=== PATIENT | female | born 1955 | race Caucasian/White ===

== ENCOUNTER 2016-07-26 10:59 | Emergency (ER) | payer MEDICARE ==
[~2016-07-26] VITALS: Ht 162.6 cm; Wt 49.9 kg
[~2016-07-26 10:59] MED LIST: COLACE100 MG PO; EFFEXOR75 MG PO; POLYETHYLENE GL17 GM PO; TAMSULOSIN HCL0.4 MG PO; TYLENOL EXTRA500 MG PO; TYLENOL PM EX-1 EACH PO; ZOFRAN4 MG PO
[2016-07-26 12:12] LABS: HEMATOCRIT 40.6 % (36.0-46.0); MCH 28.8 PG (29.0-34.0); MCHC 33.3 G/DL (30.0-36.0); MCV 86.8 FL (83-99); MEAN PLAT.VOLUME 10.4 uM^3 (9.5-12.4); PLATELET COUNT 217 K/uL (156-360); RBC DIS.WIDTH-CV 12.5 % (11.8-14.6); RBC DIS.WIDTH-SD 39.8 % (39-53); RED BLOOD COUNT 4.68 M/uL (3.80-5.20); WHITE BLOOD COUNT 6.7 K/uL (4.1-10.2)
[2016-07-26 12:27] LABS: CHLORIDE 105 mEq/L (99-109); POTASSIUM 3.2 mEq/L (3.7-5.4); SODIUM 142 mEq/L (136-147)
[2016-07-26 12:29] LABS: GLUCOSE 98 mg/dL (70-99)
[2016-07-26 12:31] LABS: ANION GAP 13 MEQ/L (2-14); TOTAL BILIRUBIN 0.5 mg/dL (0.0-1.0)
[2016-07-26 12:33] LABS: ALKALINE PHOSPHATASE 75 IU/L (3-129); GFR ESTIMATE (CALCULATED) > 59 mL/min/
[2016-07-26 12:34] LABS: UREA NITROGEN (BUN) 20 mg/dL (9-23)
[2016-07-26 12:36] LABS: LIPASE 32 U/L (1.0-51.0)
[2016-07-26 13:05] LABS: ADD MIUA? NO; BILIRUBIN NEGATIVE; BLOOD NEGATIVE; COLOR YELLOW ((YELLOW)); GLUCOSE (STRIP) NEGATIVE; KETONES 20; LEUKOCYTES NEGATIVE; NITRITE NEGATIVE; PROTEIN (STRIP) 30; UCUL ADDED? NO; UROBILINOGEN 0.2 MG/DL (0.2-1.0)
[2016-07-26] MEDS ORDERED: MECLIZINE HCL25 MG PO (16:31)
[2016-07-26 17:05] VITALS: BP 141/64
== END 2016-07-26 17:06 | disposition home or self-care (01) ==
LOC: EME 10:59
DX: R42 Dizziness and giddiness (principal); R11.2 Nausea with vomiting, unspecified; R19.7 Diarrhea, unspecified
CPT/HCPCS: 80053; 81003; 83690; 85027; 99281; 99284

== ENCOUNTER 2017-08-16 07:00 | Emergency (ER) | payer MEDICARE ==
[~2017-08-16] VITALS: Ht 162.6 cm; Wt 50.9 kg
[~2017-08-16 07:00] MED LIST changes: +MECLIZINE HCL25 MG PO
[2017-08-16 07:53] LABS: BASOPHIL (%) 0.3 % (0-1); EOSINOPHIL (%) 0.7 % (0-5); EOSINOPHIL COUNT 0.1 K/uL (0-0.3); HEMATOCRIT 42.5 % (36.0-46.0); HEMOGLOBIN 14.6 G/DL (11.9-15.5); IMMATURE GRANULOCYTE (%) 0.3 % (0.0-0.7); LYMPHOCYTE (%) 30.3 % (15-42); LYMPHOCYTE COUNT 2.2 K/uL (1.0-2.8); MCH 29.4 PG (29.0-34.0); MCHC 34.4 G/DL (30.0-36.0); MCV 85.5 FL (83-99); MONOCYTE (%) 6.3 % (3-12); MONOCYTE COUNT 0.5 K/uL (0-0.8); NEUTROPHIL (%) 62.1 % (45-76); NEUTROPHIL COUNT 4.4 K/uL (1.8-6.4); PLATELET COUNT 219 K/uL (156-360); RBC DIS.WIDTH-SD 39.8 % (39-53); RED BLOOD COUNT 4.97 M/uL (3.80-5.20); WHITE BLOOD COUNT 7.1 K/uL (4.1-10.2)
[2017-08-16 08:18] LABS: ALBUMIN 4.7 G/DL (3.2-4.8); ALKALINE PHOSPHATASE 79 IU/L (3-129); ALT (GPT) 19 IU/L (3-49); AST (GOT) 24 IU/L (2-34); CHLORIDE 102 MEQ/L (99-109); CREATININE 0.7 MG/DL (0.6-1.3); GFR ESTIMATE (CALCULATED) > 59 mL/min/; GLUCOSE 101 mg/dL (70-99); SODIUM 138 MEQ/L (136-147); TOTAL BILIRUBIN 0.7 MG/DL (0.0-1.0); TOTAL PROTEIN 7.6 G/DL (6.4-8.3); UREA NITROGEN (BUN) 17 mg/dL (9-23)
[2017-08-16] MEDS ORDERED: K-DUR20 MEQ PO (10:02)
[2017-08-16] MEDS ORDERED: BENTYL20 MG PO (10:02)
[2017-08-16] MEDS ORDERED: ZOFRAN4 MG PO (10:02)
[2017-08-16] MEDS ORDERED: IMODIUM A-D2 M2 PO (10:02)
[2017-08-16 10:25] VITALS: BP 142/97
== END 2017-08-16 10:27 | disposition home or self-care (01) ==
LOC: EME 07:00
PROVIDERS: Emergency Medicine
DX: R10.9 Unspecified abdominal pain (principal); R11.2 Nausea with vomiting, unspecified; R19.7 Diarrhea, unspecified; E87.6 Hypokalemia; R42 Dizziness and giddiness; R53.1 Weakness; Z88.0 Allergy status to penicillin
CPT/HCPCS: 80053; 85025; 87493; 99281; 99285; J1885; J2405; J7030